=== PATIENT | male | born 1990 | race Caucasian/White ===

== ENCOUNTER 2020-05-03 16:08 | Outpatient (CLI) | payer BC ==
--- NOTE | 2020-05-03 17:42 | XRAY Report ---
PROCEDURE: Finger(s) RT INDICATIONS: R THUMB PX TECHNIQUE: AP hand, 3 views of the first finger(s) acquired. COMPARISON: None FINDINGS: Bones: No fractures or dislocations. No suspicious bony lesions. Soft tissues: No suspicious soft tissue calcifications. IMPRESSION: No visualized acute fracture or dislocation. However, occult injury cannot be excluded. Recommend eusebio rt interval imaging follow-up in 7-10 days as clinically indicated for additional evaluation. Reviewed by: Callie Alexandra MD on 05/03/2020 5:41 PM PST Approved by: Callie Alexandra MD on 05/03/2020 5:41 PM PST Station ID: [id number]
== END 2020-05-03 16:09 | disposition home or self-care (01) ==
LOC: LAB.N 16:08 → DI.N 16:09
PROVIDERS: ATTEND Family Medicine
DX: M79.644 Pain in right finger(s) (principal)

== ENCOUNTER 2021-01-16 08:00 | Outpatient (CLI) | payer BC | END 2021-01-16 23:59 | disposition home or self-care (01) | LOC: LAB.N 08:00 | PROVIDERS: ATTEND Family Medicine | DX: R07.0 Pain in throat (principal) | CPT/HCPCS: 87070 ==

== ENCOUNTER 2021-01-26 08:00 | Outpatient (CLI) | payer BC | END 2021-01-26 23:59 | disposition home or self-care (01) | LOC: LAB.N 08:00 | PROVIDERS: ATTEND Physician Assistant Medical | DX: R09.81 Nasal congestion (principal); Z20.822 Contact with and (suspected) exposure to COVID-19 ==

== ENCOUNTER 2021-03-28 09:25 | Outpatient (CLI) | payer BC | END 2021-03-28 23:59 | disposition home or self-care (01) | LOC: LAB.N 09:25 | PROVIDERS: ATTEND Physician Assistant | DX: U07.1 COVID-19 (principal) ==